=== PATIENT | female | born 2000 | race Caucasian/White ===

== ENCOUNTER → 2021-06-23 | Outpatient (CLI) | payer OTHER | LOC: COL.RAD 06-21 09:45 | DX: R10.11 Right upper quadrant pain (principal) ==

== ENCOUNTER → 2021-09-06 | Outpatient (CLI) | payer OTHER | LOC: COL.RAD 08:15 | DX: G43.709 Chronic migraine without aura, not intractable, without status migrainosus (principal) ==

== ENCOUNTER 2022-01-07 07:20 | Day surgery (SDC) | payer OTHER ==
[~2022-01-07] VITALS: Ht 162.6 cm; Wt 112.3 kg
[2022-01-07 08:55] VITALS: BP 137/81; PULSE 74; TEMP 97.9
--- NOTE | 2022-01-07 09:02 | NUR ---
COMPUTER WILL NOT WORK IN THE ROOM AND MANUAL DOCUMENTATION DONE FOR IV FLUIDS.
[2022-01-07 10:00] VITALS: BP 104/74; PULSE 79; TEMP 98.2
[2022-01-07 10:15] VITALS: BP 115/92; PULSE 75
[2022-01-07 10:30] VITALS: BP 118/79; PULSE 70
== END 2022-01-07 10:35 | disposition home or self-care (01) ==
LOC: SDCO 07:20
DX: K29.31 Chronic superficial gastritis with bleeding (principal); K20.90 Esophagitis, unspecified without bleeding; Z79.899 Other long term (current) drug therapy
CPT/HCPCS: J2704; J7030